=== PATIENT | female | born 1980 | race Caucasian/White ===

== ENCOUNTER 2018-01-15 12:22 | Emergency (ER) | payer MEDICAID ==
[~2018-01-15] VITALS: Ht 160 cm; Wt 75.0 kg
[2018-01-15] MEDS ORDERED: AZIT250T PO (13:22)
[2018-01-15] MEDS ORDERED: BENZ100C PO (13:22)
[2018-01-15] MEDS ORDERED: ALBU8.5H8 INH (13:22)
[2018-01-15] MEDS ORDERED: PROM5SYR2 PO (13:22)
--- NOTE | 2018-01-15 13:27 | PHYS DOC ---
Past History Past Medical History: Depression Smoking: Cigarettes Adult General Chief Complaint Chief Complaint: COUGH HPI HPI 37-year-old female patient complaining of nonproductive cough for the last 2 days with episodes of chest soreness during cough and shortness of breath. Patient complaining of frontal pressure feeling and posttussive vomiting patient complaining of nasal congestion and sore throat and facial pain with chills without fever, sick contact, abdominal pain, . Patient rated her pain 6/10. Review of Systems Review of Systems Constitutional: Denies fever, reports chills] Eyes: Denies change in visual acuity, redness, or eye pain [] HENT: Reports nasal congestion or sore throat Respiratory: Reports cough and shortness of breath Cardiovascular: No additional information not addressed in HPI [] GI: Denies abdominal pain, bloody stools or diarrhea,reports nausea and vomiting[] : Denies dysuria or hematuria [] Musculoskeletal: Denies back pain or joint pain [] Integument: Denies rash or skin lesions [] Neurologic: Denies headache, focal weakness or sensory changes [] Endocrine: Denies polyuria or polydipsia [] All other systems were reviewed and found to be within normal limits, except as documented in this note. Physical Exam Physical Exam Constitutional: Well nourished, mild distress, non-toxic appearance. [] HENT: Normocephalic, atraumatic, bilateral external ears normal, oropharynx moist, pharyngeal erythema, no oral exudates, nasal congestion Eyes: PERRLA, EOMI, conjunctiva normal, no discharge. [] Neck: Normal range of motion, no tenderness, supple, no stridor. [] Cardiovascular:Heart rate regular rhythm, no murmur [] Lungs & Thorax: Bilateral breath sounds clear to auscultation [] Abdomen: Bowel sounds normal, soft, no tenderness, no masses, no pulsatile masses. [] Skin: Warm, dry, no erythema, no rash. [] Back: No tenderness, no CVA tenderness. [] Extremities: No tenderness, no cyanosis, no clubbing, ROM intact, no edema. [] Neurologic: Alert and oriented X 3, normal motor function, normal sensory function, no focal deficits noted. [] Psychologic: Anxious, judgement normal, mood normal. [] EKG EKG [] Radiology/Procedures Radiology/Procedures [] Course & Med Decision Making Course & Med Decision Making discharge: I've spoken with the patient and/or caregivers. I've explained the patient's condition, diagnosis and treatment plan based on information available to me at this time. I've answered the patient's and/or caregivers questions and addressed any concerns. The patient and/or caregivers have a good understanding the patient's diagnosis, condition and treatment plan as can be expected at this point. Vital signs have been stabilized. The patient's condition is stable for discharge from the emergency department. The patient will pursue further outpatient evaluation with her primary care provider or other designated consulting physician as outlined in the discharge instructions. Patient and/or caregivers are agreeable to this plan of care and follow-up instructions have been explained in detail. The patient and/or caregivers have received these instructions in written format and expressed understanding of these discharge instructions. The patient and her caregivers are aware that if any significant change in condition or worsening of symptoms should prompt him to immediately return to this of the closest emergency department. If an emergent department is not readily available I would encourage him to call 911. Kait Disclaimer Dragon Disclaimer This electronic medical record was generated, in whole or in part, using a voice recognition dictation system. Departure Departure: Impression: Primary Impression: Acute bronchitis Additional Impressions: Tobacco abuse Tobacco abuse counseling Anxiety Disposition: HOME, SELF-CARE (At 1340) Condition: IMPROVED Referrals: [facility] (PCP) Patient Instructions: Acute Bronchitis, Smoking Cessation Additional Instructions: Drink plenty of liquids Follow-up with your primary care physician in 3-5 days Return to ER if not getting better Scripts Benzonatate (TESSALON PERLE) 100 Mg Capsule 1 CAP PO TID, #21 CAP Prov: CHLOE SKINNER MD 01/15/18 Promethazine HCl/Codeine (Prometh-Codein 6.25-10 mg/5 ml) 5 Ml Syrup 5 ML PO QID Y for COUGH, #120 ML Prov: CHLOE SKINNER MD 01/15/18 Albuterol Sulfate (PROAIR HFA INHALER) 8.5 Gm Hfa.aer.ad 2 PUFF INH PRN Q6HRS Y for SHORTNESS OF BREATH, #1 INHALER 0 Refills Prov: CHLOE SKINNER MD 01/15/18 Azithromycin (ZITHROMAX) 250 Mg Tablet 1 PKG PO UD, #1 PKG Prov: CHLOE SKINNER MD 01/15/18 Problem Qualifiers CHLOE SKINNER MD January 15, 2018 13:27
[2018-01-15] MEDS ORDERED: BENZONATATE 100 MG CAPSULE. PO ONE (13:30)
[2018-01-15] MEDS ORDERED: IPRATRPIUM/ALBUTEROL 0.5/2.5MG 3 ML NEBU. NEB ONE (13:30)
[2018-01-15 13:36] VITALS: BP 115/70
== END 2018-01-17 15:45 | disposition home or self-care (01) ==
LOC: ER 12:22
DX: J20.9 Acute bronchitis, unspecified (principal); R11.2 Nausea with vomiting, unspecified; F41.9 Anxiety disorder, unspecified; F32.9 Major depressive disorder, single episode, unspecified; F17.210 Nicotine dependence, cigarettes, uncomplicated; Z71.6 Tobacco abuse counseling
CPT/HCPCS: 94640; 99283; J7620